=== PATIENT | male | born 1935 | race Hispanic/Latino ===

== ENCOUNTER 2023-04-27 16:30 | Emergency (ER) | payer OTHER ==
[2023-04-29 13:55] LABS: BASOPHILS # (AUTO) 0.02 K/uL (0.00-0.20); BASOPHILS % (AUTO) 0.5 % (0.0-5.0); EOSINOPHILS # (AUTO) 0.23 K/uL (0.00-0.70); EOSINOPHILS % (AUTO) 5.7 % (0.0-8.0); HEMATOCRIT 42.5 % (42-54); IMMATURE GRANULOCYTE ABSOLUTE 0.01 K/uL (0-1); LYMPHOCYTES # (AUTO) 1.7 K/uL (1.0-4.8); LYMPHOCYTES % (AUTO) 41.8 % (21.0-51.0); MEAN CORPUSCULAR HEMOGLOBIN 32.8 pg (27.0-33.0); MEAN CORPUSCULAR HGB CONC 33.6 g/dL (32.0-36.0); MEAN CORPUSCULAR VOLUME 97.5 fL (79-99); MONOCYTES # (AUTO) 0.5 K/uL (0.1-1.0); MONOCYTES % (AUTO) 11.6 % (3.0-13.0); NEUTROPHILS # (AUTO) 1.6 K/uL (1.8-7.7); NEUTROPHILS % (AUTO) 40.2 % (40.0-77.0); PLATELET COUNT (AUTO) 167 K/uL (130-400); RED BLOOD CELL COUNT(AUTO) 4.36 MIL/uL (4.50-6.20); RED CELL DISTRIBUTION WIDTH 12.6 % (11.0-15.5)
[2023-04-29 14:16] LABS: INR 0.94 (0.85-1.15); PROTHROMBIN TIME 10.9 SEC (9.6-11.6); SODIUM SERUM 142 mmol/L (136-145)
[2023-04-29 14:17] LABS: ALANINE AMINOTRANSFERASE 32 U/L (12-78); ALBUMIN 3.6 g/dL (3.5-5.0); ASPARTATE AMINOTRANSFERASE 30 U/L (10-37); BILIRUBIN,TOTAL 0.3 mg/dL (0.2-1.0); CARBON DIOXIDE 26 mmol/L (21-32); CHLORIDE 106 mmol/L (101-111); CREATININE 1.1 mg/dL (0.5-1.5); GLOMERULAR FILTR. RATE CALC 65 mL/min (>90); GLUCOSE,RANDOM 118 mg/dL (70-105); MYOGLOBIN 66 ng/mL (10-92); POTASSIUM 4.2 mmol/L (3.5-5.1); TOTAL PROTEIN, SERUM 7.1 g/dL (6.0-8.3); UREA NITROGEN, BLOOD 15 mg/dL (7-18)
[2023-04-29 14:18] LABS: ALCOHOL, BLOOD < 3 mg/dL (0-10)
== END 2023-04-27 22:35 | disposition home or self-care (01) ==
LOC: EDH 16:30
DX: R07.9 Chest pain, unspecified (principal); Z53.21 Procedure and treatment not carried out due to patient leaving prior to being seen by health care provider
CPT/HCPCS: 36415; 70450; 71045; 80053; 80305; 83605; 83874; 84484; 85025; 85610; 85730; 93005

== ENCOUNTER 2025-03-05 14:16 | Emergency (ER) | payer SELFPAY ==
[~2025-03-05] VITALS: Ht 149.9 cm; Wt 63.5 kg
[2025-03-05 15:30] VITALS: O2SAT 100
[2025-03-05 15:32] LABS: BASOPHILS # (AUTO) 0.01 K/uL (0.00-0.20); BASOPHILS % (AUTO) 0.3 % (0.0-5.0); EOSINOPHILS # (AUTO) 0.19 K/uL (0.00-0.70); EOSINOPHILS % (AUTO) 5.4 % (0.0-8.0); HEMATOCRIT 43.1 % (42-54); IMMATURE GRANULOCYTE ABSOLUTE 0.01 K/uL (0-1); LYMPHOCYTES # (AUTO) 1.4 K/uL (1.0-4.8); LYMPHOCYTES % (AUTO) 39.4 % (21.0-51.0); MEAN CORPUSCULAR HGB CONC 33.6 g/dL (32.0-36.0); MEAN CORPUSCULAR VOLUME 98.2 fL (79-99); MONOCYTES # (AUTO) 0.5 K/uL (0.1-1.0); MONOCYTES % (AUTO) 13.2 % (3.0-13.0); NEUTROPHILS # (AUTO) 1.5 K/uL (1.8-7.7); NEUTROPHILS % (AUTO) 41.4 % (40.0-77.0); PLATELET COUNT (AUTO) 149 K/uL (130-400); RED BLOOD CELL COUNT(AUTO) 4.39 MIL/uL (4.50-6.20); RED CELL DISTRIBUTION WIDTH 12.8 % (11.0-15.5); WHITE BLOOD COUNT (AUTO) 3.6 K/uL (4.8-10.8)
[2025-03-05] MEDS: LACTATED RINGERS 1000ML 1,000 ML IV ONE (15:36)
[2025-03-05 15:38] LABS: APPEARANCE,URINE CLEAR (CLEAR); BILIRUBIN,URINE NEGATIVE (NEGATIVE); GLUCOSE, URINE (UA) NEGATIVE (NEGATIVE); KETONES,URINE NEGATIVE (NEGATIVE); LEUKOCYTE ESTERASE ,URINE NEGATIVE Leu/uL (NEGATIVE); MUCUS,URINE RARE LPF (None Seen); NITRATE,URINE NEGATIVE (NEGATIVE); OCCULT BLOOD,URINE NEGATIVE (NEGATIVE); PROTEIN,URINE NEGATIVE (NEGATIVE); UROBILINOGEN,URINE 0.2 mg/dL (0.2-1.0)
[2025-03-05 15:40] LABS: CREATININE 0.8 mg/dL (0.5-1.3); POTASSIUM 4.4 mmol/L (3.5-5.1)
--- NOTE | 2025-03-05 15:40 | HMCIMG ---
PORTABLE CHEST RADIOGRAPH INDICATION: dizzy COMPARISON: None FINDINGS: Heart size is normal. The pulmonary vascularity and elena appear normal. No abnormal pulmonary parenchymal opacity or consolidation identified. No significant pleural effusion noted. No pneumothorax detected. IMPRESSION: No radiographic evidence for any acute cardiopulmonary process.
[2025-03-05 15:42] LABS: COLOR,URINE STRAW (YELLOW)
[2025-03-05 15:52] LABS: MAGNESIUM 1.9 mg/dL (1.80-2.40)
--- NOTE | 2025-03-05 16:03 | HMCIMG ---
CT HEAD WITHOUT CONTRAST INDICATION: Fall TECHNIQUE: Noncontrast axial helical CT images from the vertex through the skull base using 5 mm slice thickness without contrast material. Coronal and sagittal reconstructions were also included. Dose reduction techniques was used using integrated, automated and adaptive dose reduction exposure control. CT was performed with one or more of the following dose reduction techniques: Automated exposure control, adjustment of the mA and/or kV according to patient size, or use of iterative reconstruction technique. COMPARISON: None FINDINGS: Scattered and coalescent subcortical and periventricular white matter low attenuating areas likely represent residual of chronic small vessel arteriopathy and/or remote vascular insult. Generalized mild cerebral cortical atrophy is present.. No evidence for abnormal extra-axial fluid collections or masses. The ventricles and sulci are normal in size and configuration. No evidence for intracranial parenchymal, epidural, or subdural hemorrhage, mass effect or midline shift. The hurd-white matter differentiation is well preserved. No secondary evidence to suggest acute ischemia. Mild calcific plaque is present along the benítez of the cavernous segments of both internal carotid arteries. The brainstem and cerebellum appear normal. The visualized orbits appear unremarkable. The visible paranasal sinuses and mastoid air cells are clear. The calvarium appears normal. IMPRESSION: Chronic white matter ischemic changes, mild brain atrophy, and arteriosclerotic disease as described, without acute component.
--- NOTE | 2025-03-05 16:03 | HMCIMG ---
CT CERVICAL SPINE WITHOUT CONTRAST INDICATION: Neck pain after fall TECHNIQUE: Contiguous axial computed tomography imaging using 2 mm slice thickness through the cervical spine. Reconstructions in the sagittal and coronal planes. CT was performed with one or more of the following dose reduction techniques: Automated exposure control, adjustment of the mA and/or kV according to patient size, or use of iterative reconstruction technique. COMPARISON: None. FINDINGS: Straightening of the normal lordosis may be related to overlying muscle spasm, underlying degenerative joint disease and/or patient positioning. Vertebral bodies are normal stature without evidence for compression deformity or fracture. No evidence for subluxation. Multilevel mild cervical spondylosis. The craniocervical junction appears normal. The atlantoaxial articulation is within normal limits. The dens is intact. The pre- and paravertebral soft tissues appear unremarkable. IMPRESSION: No evidence for fracture or subluxation.
[2025-03-05 16:31] VITALS: BP 156/66; PULSE 54; RESP 16; TEMP 97.9
[2025-03-05] MEDS: mecliZINE HCL 25 MG TABLET PO ONE (17:04)
[2025-03-05] MEDS ORDERED: MECL-169 PO (17:12)
--- NOTE | 2025-03-05 17:12 | ERN ---
General Chief Complaint: Dizzy/Light Headed Stated Complaint: DIZZINESS Time Seen by MD: 14:19 History of Present Illness Initial Comments 89M presents from home for dizziness. Patient reports that for the last week or so he has had on and off episodes of dizziness and nausea. Utensils loss of balance. Dizziness is mostly when he stands up and walks. When he sits still with his eyes closed the dizziness goes away. It is described as a lightheadedness. He has no focal neurologic deficits. No fevers. No diarrhea. No chest pain palpitations or dyspnea. He has never felt this before. No ear pressure ear infection. P.o. tolerant. Allergies: Coded Allergies: No Known Allergies (Unverified Allergy, Unknown, 03/05/25) Past Medical History Past Medical History: No Pertinent History Past Surgical History: Other ROS Dictation CONSTITUTIONAL: No chills, no fever, no weakness, no diaphoresis, no malaise. HEAD/FACE: No signs of trauma. EENT: No eye pain, no blurred vision, no tearing, no double vision, no ear pain, no ear discharge, no nose pain, no nasal congestion, no throat pain, no throat swelling, no mouth pain. RESPIRATORY: No cough, no orthopnea, no SOB, no stridor, no wheezing. CARDIOVASCULAR: No chest pain, no edema, no palpitations, no syncope. GASTROINTESTINAL/ABDOMINAL: No abdominal pain, no constipation, no diarrhea, no nausea, no vomiting. GENITOURINARY: No abnormal discharge, no dysuria, no frequent urination, no hematuria. No complaints of pain in the genitals. MUSCULOSKELETAL: No back pain, no gout, no joint pain, no joint swelling, no muscle pain, no muscle stiffness, no neck pain. INTEGUMENTARY: No change in color, no change in hair/nails, no dryness, no lesion, no lumps, no rash. NEUROLOGICAL/PSYCH: Dizziness HEMATOLOGIC/LYMPHATIC: Not anemic, no history of blood clots, no apparent bleeding, no bruising, glands not swollen. All Systems Negative, Except as Noted. Physical Exam Physical Exam Dictation VITAL SIGNS: Reviewed. GENERAL APPEARANCE: Alert, oriented x3, no acute distress. HEAD AND FACE: Non-traumatic. EYES: PERRL, pink conjunctivas, eyelid no trauma, anterior chamber clear. EARS: Pinnas intact and no signs of trauma or erythema. Ear canals clear and no discharge. TMs no erythema. NOSE: No discharge, no bleeding. OROPHARYNX: Mouth normal, teeth no caries, tongue pink. Pharynx clear, no erythema. Tonsils no exudates, no abscesses noted. Mucous membrane moist. NECK: Supple, non-tender, no thyromegaly, no masses, no JVD, no bruits. BREAST: Deferred. CHEST: No tenderness, no crepitus, no paradoxical movement, no retractions. LUNGS: Clear, well-ventilated, symmetric, no rales, no wheezing, no rhonchi, no stridor, good breath sounds bilaterally. HEART: Regular rate, regular rhythm, no murmur, no gallops. VASCULAR: No peripheral edema. ABDOMEN: Soft, positive bowel sounds, nondistended, no guarding, nontender, no rebound, no masses no hepatomegaly, no splenomegaly, no Chavez's sign, no hernias. RECTAL: Deferred. GENITAL: Deferred. NEUROLOGICAL: Normal speech, gross motor function intact, gross sensory function intact. MUSCULOSKELETAL: Neck nontender, full range of motion, back nontender, full range of motion. EXTREMITIES: Nontender, full range of motion. SKIN: Color pink, dry, no turgor, no rash, no lacerations, no abrasions, no contusions. LYMPHATICS: Deferred. Results Laboratory and Microbiology Lab and Micro Result Laboratory Tests Test 03/05/25 15:21 03/05/25 15:25 White Blood Count 3.6 K/uL (4.8-10.8) L Red Blood Count 4.39 MIL/uL (4.50-6.20) L Hemoglobin 14.5 g/dL (14.0-18.0) Hematocrit 43.1 % (42-54) Mean Corpuscular Volume 98.2 fL (79-99) Mean Corpuscular Hemoglobin 33.0 pg (27.0-33.0) Mean Corpuscular Hemoglobin Concent 33.6 g/dL (32.0-36.0) Red Cell Distribution Width 12.8 % (11.0-15.5) Platelet Count 149 K/uL (130-400) Mean Platelet Volume 9.6 fL (7.5-10.5) Immature Granulocyte % (Auto) 0.3 % (0-1) Neutrophils (%) (Auto) 41.4 % (40.0-77.0) Lymphocytes (%) (Auto) 39.4 % (21.0-51.0) Monocytes (%) (Auto) 13.2 % (3.0-13.0) H Eosinophils (%) (Auto) 5.4 % (0.0-8.0) Basophils (%) (Auto) 0.3 % (0.0-5.0) Neutrophils # (Auto) 1.5 K/uL (1.8-7.7) L Lymphocytes # (Auto) 1.4 K/uL (1.0-4.8) Monocytes # (Auto) 0.5 K/uL (0.1-1.0) Eosinophils # (Auto) 0.19 K/uL (0.00-0.70) Basophils # (Auto) 0.01 K/uL (0.00-0.20) Absolute Immature Granulocyte (auto 0.01 K/uL (0-1) Nucleated Red Blood Cells 0.0 % (0.0-0.19) Sodium Level 138 mmol/L (136-145) Potassium Level 4.4 mmol/L (3.5-5.1) Chloride Level 103 mmol/L (101-111) Carbon Dioxide Level 32 mmol/L (21-32) Blood Urea Nitrogen 10 mg/dL (7-18) Creatinine 0.8 mg/dL (0.5-1.3) Glomerular Filtration Rate Calc 85 mL/min (>90) Random Glucose 100 mg/dL (70-105) Total Calcium 8.8 mg/dL (8.5-10.1) Magnesium Level 1.90 mg/dL (1.80-2.40) Total Creatine Kinase 101 U/L (21-232) Troponin I High Sensitivity 14.2 ng/L (4-75) NA-Gao-K-Type Natriuretic Peptide 467 pg/mL (0-450) H Urine Color STRAW (YELLOW) Urine Appearance CLEAR (CLEAR) Urine pH 7.0 (5.0-8.0) Urine Specific [place] 1.002 (1.001-1.031) Urine Protein NEGATIVE mg/dL (NEGATIVE) Urine Glucose (UA) NEGATIVE mg/dL (NEGATIVE) Urine Ketones NEGATIVE mg/dL (NEGATIVE) Urine Occult Blood NEGATIVE (NEGATIVE) Urine Nitrate NEGATIVE (NEGATIVE) Urine Bilirubin NEGATIVE mg/dL (NEGATIVE) Urine Urobilinogen 0.2 mg/dL (0.2-1.0) Urine Leukocyte Esterase NEGATIVE [place]/uL Urine RBC None /HPF (0-1) Urine WBC None /HPF (0-1) Urine Bacteria None /HPF (None Seen) MDM CC: Dizziness for a week Historian: Patient Comorbidities: Denies medical conditions Limitations by social determinants of health: None Differential diagnosis: Vertigo, dehydration, electrolyte abnormality, ACS, significant brain disturbance such as stroke or bleed Vital signs stable Labs (independently interpreted by me): no leukocytosis, no anemia, chemistry stable electrolytes, ck normal, troponin normal. BNP 467, otherwise stable. UA normal. CXR (independently interpreted by me): no cardiomegally, no pleural effusion, no focal infiltrates CT head w/o contrast (independently interpreted by me): no brain bleed or major abnormality CT cervical spine w/o contrast (independently interpreted by me): no acute fracture. EKG: Sinus rhythm, rate of 52 bradycardia, normal axis, early R-wave progression, intervals are stable no STEMI. Independently interpreted by me. Treatment in ED: 1 L lactated Ringer's, oral meclizine. No signs of stroke, significant electrolyte abnormality, cardiac dysrhythmia, or other life-threatening pathology. Patient may have been dehydrated. He also may have seen vertigo. He reports that his symptoms have improved. I did offer the patient admission for further treatment evaluation here in the hospital, but he reports that he feels much better and prefers to go home at this time. We w ill discharge with a prescription for meclizine, recommend hydration, and recommend PCP follow up. ED Course Orders Procedure Category Date Status Time 12 Lead Ekg Tracing- EKG 03/05/25 Logged Technical 14:28 Ct Head/Brain W/O CT 03/05/25 Resulted Contrast 14:36 Ct Cervical Spine W/O CT 03/05/25 Resulted Contrast 14:36 Cardiac Panel LAB 03/05/25 Complete 14:36 Cbc With Differential LAB 03/05/25 Complete 14:36 Basic Metabolic Panel LAB 03/05/25 Complete 14:36 Magnesium LAB 03/05/25 Complete 14:36 Chest 1vw RAD 03/05/25 Resulted 14:44 Urinalysis LAB 03/05/25 Complete W/Microscopic 14:44 Lactated Ringers PHA 03/05/25 Complete 1000ml (Lactated 15:00 Probnp LAB 03/05/25 Complete 14:36 12 Lead Ekg Tracing- EKG 03/05/25 Logged Technical 15:56 Meclizine Hcl 25 Mg PHA 03/05/25 Complete (Antivert 25 Mg) 16:00 Current Medications Medications (Trade) Dose Ordered Sig/Óscar Route PRN Reason Start Time Stop Time Status Last Admin Dose Admin Lactated Ringer's 1,000 ml @ 0 mls/hr ONCE ONCE IV 03/05/25 15:00 03/05/25 15:09 DC 03/05/25 15:36 Meclizine HCl (ANTIvert 25 mg) 25 mg ONCE ONCE PO 03/05/25 16:00 03/05/25 16:24 DC 03/05/25 17:04 Vital Signs Date Time Temp Pulse Resp B/P (MAP) Pulse Ox O2 Delivery O2 Flow Rate FiO2 03/05/25 16:31 97.9 54 16 156/66 Room Air* 0 03/05/25 15:30 98.1 50 18 164/63 100 Room Air* 0 03/05/25 14:30 97.9 58 18 148/60 99 Room Air* 0 03/05/25 14:18 98.6 60 20 148/66 99 Room Air DX & DISP Disposition: Discharge Departure Impression: Primary Impression: Vertigo Additional Impression: Dehydration Condition: Stable Scripts Meclizine HCl (Motion Sickness Relief) 25 Mg Tablet 1 TAB PO TID for dizziness for 10 Days, #30 TAB 0 Refills Prov: STANISLAV HA DO 03/05/25 Additional Instructions: Your symptoms are consistent with dehydration and vertigo. Your EKG is normal. The CT scan of your brain is unremarkable. Your chest x- ray is clear. Your blood work shows some mild dehydration but is otherwise unremarkable. I have prescribed meclizine, which is a medicine that we will help with dizziness. You can take this up to 3 times a day as needed. Be sure to drink of liquids. An electrolyte solution such as Gatorade has been choice. Please follow up with the primary doctor. Referrals: BALAJI CARDONA MD (PCP) STANISLAV HA DO Mar 05, 2025 17:12
--- NOTE | 2025-03-06 08:08 | EKG ---
[facility] Test Date: 2025-03-05 Test Time: 15:01:56 Pat Name: ROGELIO HARDING Department: ED Room: Gender: Windows System Admin: [facility] [place] : 1935 Requested By: STANISLAV HA Order Number: [id number] Reading MD: Ivon Rasmussen Measurements Intervals [place] Rate: 52 P: 37 AK: 222 QRS: 10 QRSD: 80 T: 66 QT: 436 QTc: 405 Interpretive Statements Sinus bradycardia with 1st degree AV block Nonspecific T wave abnormality Compared to ECG 04/27/2023 21:15:13 T-wave abnormality now present Sinus rhythm no longer present Electronically Signed On 03-06-2025 12:55:42 CDT by Ivon Rasmussen Please click the below link to view image of tracing.
== END 2025-03-05 17:33 | disposition home or self-care (01) ==
LOC: EDH 14:16
DX: R55 Syncope and collapse (principal); E86.0 Dehydration
CPT/HCPCS: 99285; 70450; 96360; 71045; 96361; 82550; 83735; 84484; 80048; 83880; 85025; 81001; 36415; 72125; 93005; J7120